=== PATIENT | female | born 1950 | race Caucasian/White ===

== ENCOUNTER 2017-06-13 11:37 | Emergency (ER) | payer MEDICARE, OTHER ==
[~2017-06-13] VITALS: Ht 160 cm; Wt 82.6 kg
[2017-06-13 12:19] VITALS: PULSE 102; RESP 16; TEMP 98.6; O2SAT 98
[2017-06-13] MEDS ORDERED: SODIUM CHLOR 0.9% 1000 ML INJ 1,000 ML IV SCH (12:33)
[2017-06-13] MEDS ORDERED: CHOL5000 PO (12:40)
[2017-06-13] MEDS ORDERED: LEXA20TA PO (12:40)
[2017-06-13] MEDS ORDERED: HYZA50TA2 PO (12:40)
[2017-06-13] MEDS ORDERED: ONDANSETRON HCL 4 MG/2 ML VIAL IVP ONE (12:45)
[2017-06-13] MEDS ORDERED: SODIUM CHLORIDE 0.9% FLUSH 10 ML FLUSH IV FLUSH PRN (12:45)
[2017-06-13 12:52] VITALS: O2SAT 97
[2017-06-13 12:57] LABS: AUTOMATED NEUTROPHIL # 5.6 TH/MM3 (1.8-7.7); BASOPHIL # 0.4 TH/MM3 (0-0.2); BASOPHIL % 4.6 % (0.0-2.0); BILIRUBIN, URINE NEG (NEG); EOSINOPHIL # 0.3 TH/MM3 (0-0.4); EOSINOPHIL % 3.3 % (0.0-4.0); GLUCOSE,URINE NEG (NEG); HEMATOCRIT 42.5 % (35.0-46.0); HEMOGLOBIN 13.9 GM/DL (11.6-15.3); KETONE, URINE NEG (NEG); LYMPH % 26.2 % (9.0-44.0); LYMPHOCYTE # 2.4 TH/MM3 (1.0-4.8); MEAN CELL VOLUME 92.2 FL (80.0-100.0); MEAN CORPUSCULAR HEMOGLOBIN 30.1 PG (27.0-34.0); MEAN CORPUSCULAR HGB CONC 32.6 % (32.0-36.0); MEAN PLATELET VOLUME 8.6 FL (7.0-11.0); MONOCYTE # 0.6 TH/MM3 (0-0.9); NEUT % 58.9 % (16.0-70.0); NITRITE,URINE NEG (NEG); PH, URINE 5.5 (5.0-8.5); PLATELET COUNT 239 TH/MM3 (150-450); RED BLOOD COUNT 4.61 MIL/MM3 (4.00-5.30); RED CELL DISTRIBUTION WIDTH 12.6 % (11.6-17.2); URINE LEUKOCYTE ESTERASE SMALL (NEG); WHITE BLOOD COUNT 9.3 TH/MM3 (4.0-11.0)
[2017-06-13 12:58] LABS: BLOOD, URINE TRACE (NEG)
[2017-06-13 13:00] LABS: URINE COLOR YELLOW (YELLW/STRAW)
[2017-06-13 13:03] LABS: CHLORIDE 105 MEQ/L (98-107); SODIUM (NA) 140 MEQ/L (136-145)
[2017-06-13 13:05] LABS: AMORPHOUS SEDIMENT, URINE FEW; BACTERIA, URINE MOD /hpf; RBC, URINE 0-3 /hpf (0-3); WHITE BLOOD CELL CLUMPS FEW
[2017-06-13 13:07] LABS: ALBUMIN 3.5 GM/DL (3.4-5.0); BICARBONATE 26.7 MEQ/L (21.0-32.0); BLOOD UREA NITROGEN 9 MG/DL (7-18); CALCIUM 8.9 MG/DL (8.5-10.1); GLUCOSE,RANDOM 130 MG/DL (74-106); LIPASE 119 U/L (73-393)
[2017-06-13 13:10] LABS: ALT (GPT) 31 U/L (10-53); AST (GOT) 27 U/L (15-37); CREATININE 0.76 MG/DL (0.50-1.00); GLOMERULAR FILTRATION RATE 76 ML/MIN (>89)
--- NOTE | 2017-06-13 13:10 | PD ---
HPI Chief Complaint: GI Complaint Time Seen by Provider: 12:26 Travel History International Travel<30 days: No Contact w/Intl Traveler<30days: No Traveled to known affect area: No History of Present Illness HPI This is a 66-year-old female who presents to the emergency department with nausea that going on for 4 days, constant, moderate severity, worsening, associated with decreased appetite. She does say she's had some abnormal urination, hasn't been urinating as much and feels some pressure when she urinates. She has had kidney infections in the past. She denies any abdominal pain, fevers or chills. She had one episode of vomiting 2 days ago. She denies any chest pain. PFSH Past Medical History Arthritis: Yes (OSTEO) Cardiovascular Problems: Yes (htn on meds) High Cholesterol: Yes Diabetes: Yes (BORDERLINE) Patient Takes Glucophage: No Diminished Hearing: No Hypertension: Yes Musculoskeletal: Yes (DDD) Tetanus Vaccination: > 5 Years Influenza Vaccination: Yes ?: Not Tubal Ligation: Yes Past Surgical History Appendectomy: Yes Hysterectomy: Yes Social History Alcohol Use: No Tobacco Use: No Substance Use: No Allergies-Medications (Allergen,Severity, Reaction): Coded Allergies: No Known Allergies (Unverified , 06/13/17) Reported Meds & Prescriptions Reported Meds & Active Scripts Active Reported Vitamin D3 (Cholecalciferol) 5,000 Unit Cap 5,000 Units PO DAILY Lexapro (Escitalopram Oxalate) 20 Mg Tab 20 Mg PO DAILY Hyzaar (Losartan-Hydrochlorothiazide) 50-12.5 Mg Tab Unknown Dose PO DAILY Review of Systems Except as stated in HPI: all other systems reviewed are Neg Physical Exam Narrative GENERAL:Well appearing, no acute distress SKIN: Focused skin assessment warm and dry. HEAD: Atraumatic. Normocephalic. EYES: Pupils equal and round. No injection or drainage. ENT: Moist mucous membranes NECK: Trachea midline. CARDIOVASCULAR: Regular rate and rhythm. No murmur appreciated. RESPIRATORY: Clear to auscultation. Breath sounds equal bilaterally. GASTROINTESTINAL: Abdomen soft, tender to palpation in the suprapubic region with no rebound or guarding. MUSCULOSKELETAL: No obvious deformities. NEUROLOGICAL: Awake and alert. No obvious cranial nerve deficits. Moving all extremities. PSYCHIATRIC: Appropriate mood and affect; insight and judgment normal. Data Data Last Documented VS Vital Signs Date Time Temp Pulse Resp B/P (MAP) Pulse Ox O2 Delivery O2 Flow Rate FiO2 06/13/17 12:52 97 Room Air 06/13/17 12:19 98.6 102 16 Orders Orders Complete Blood Count With Diff (06/13/17 12:33) Comprehensive Metabolic Panel (06/13/17 12:33) Lipase (06/13/17 12:33) Urinalysis - C+S If Indicated (06/13/17 12:33) Iv Access Insert/Monitor (06/13/17 12:33) Ecg Monitoring (06/13/17 12:33) Oximetry (06/13/17 12:33) Ondansetron Inj (Zofran Inj) (06/13/17 12:45) Sodium Chlor 0.9% 1000 Ml Inj (Ns 1000 M (06/13/17 12:33) Sodium Chloride 0.9% Flush (Ns Flush) (06/13/17 12:45) Troponin I (06/13/17 12:33) Urine Culture (06/13/17 12:50) Ceftriaxone Inj (Rocephin Inj) (06/13/17 13:15) Labs Laboratory Tests Test 06/13/17 12:50 White Blood Count 9.3 TH/MM3 Red Blood Count 4.61 MIL/MM3 Hemoglobin 13.9 GM/DL Hematocrit 42.5 % Mean Corpuscular Volume 92.2 FL Mean Corpuscular Hemoglobin 30.1 PG Mean Corpuscular Hemoglobin Concent 32.6 % Red Cell Distribution Width 12.6 % Platelet Count 239 TH/MM3 Mean Platelet Volume 8.6 FL Neutrophils (%) (Auto) 58.9 % Lymphocytes (%) (Auto) 26.2 % Monocytes (%) (Auto) 7.0 % Eosinophils (%) (Auto) 3.3 % Basophils (%) (Auto) 4.6 % Neutrophils # (Auto) 5.6 TH/MM3 Lymphocytes # (Auto) 2.4 TH/MM3 Monocytes # (Auto) 0.6 TH/MM3 Eosinophils # (Auto) 0.3 TH/MM3 Basophils # (Auto) 0.4 TH/MM3 CBC Comment DIFF FINAL Differential Comment Urine Collection Type CLEAN CATCH Urine Color YELLOW Urine Turbidity SLIGHT Urine pH 5.5 Urine Specific [place] 1.017 Urine Protein NEG mg/dL Urine Glucose (UA) NEG mg/dL Urine Ketones NEG mg/dL Urine Occult Blood TRACE Urine Nitrite NEG Urine Bilirubin NEG Urine Leukocyte Esterase SMALL Urine RBC 0-3 /hpf Urine WBC 20-24 /hpf Urine WBC Clumps FEW Urine Squamous Epithelial Cells 6-8 /hpf Urine Amorphous Sediment FEW Urine Bacteria MOD /hpf Microscopic Urinalysis Comment CULTURE INDICATED Urine Collection Time 1250 Blood Urea Nitrogen 9 MG/DL Creatinine 0.76 MG/DL Random Glucose 130 MG/DL Total Protein 7.4 GM/DL Albumin 3.5 GM/DL Calcium Level 8.9 MG/DL Alkaline Phosphatase 98 U/L Aspartate Amino Transf (AST/SGOT) 27 U/L Alanine Aminotransferase (ALT/SGPT) 31 U/L Total Bilirubin 0.4 MG/DL Sodium Level 140 MEQ/L Potassium Level 3.7 MEQ/L Chloride Level 105 MEQ/L Carbon Dioxide Level 26.7 MEQ/L Anion Gap 8 MEQ/L Estimat Glomerular Filtration Rate 76 ML/MIN Troponin I LESS THAN 0.02 NG/ML Lipase 119 U/L MDM Medical Decision Making Medical Screen Exam Complete: Yes Emergency Medical Condition: Yes Interpretation(s) afebrile, mildly tachycardic No leukocytosis Electrolytes are reassuring Troponin is normal Lipase is normal Urinalysis demonstrates urinary tract infection Differential Diagnosis Urinary tract infection, pyelonephritis, pancreatitis, cholecystitis, myocardial infarction, gastroenteritis Narrative Course This is a 66-year-old female who presents to the emergency department with nausea that's been going on for 4 days as well as some symptoms suggestive of a urinary tract infection. She says this has happened to her before. Patient was placed on a monitor and an IV was established. Labs are reassuring including a normal troponin. Urinalysis demonstrates a urinary tract infection. Given she has had some vomiting think it's reasonable to treat her for pyelonephritis. She was given 1 dose of IV Rocephin in the emergency department and will be discharged on Keflex. Otherwise she appears well and nontoxic and I think she is appropriate for outpatient management. Diagnosis Primary Impression: Pyelonephritis Patient Instructions: General Instructions Additional Instructions: If you develop fever, persistent vomiting, back pain, or inability to eat return to the emergency department as your urine infection may have progressed to a kidney infection. Complete your antibiotics as prescribed. Stay well hydrated with Gatorade or water. Followup with your primary care physician in 2-3 days if your symptoms have not resolved. Med/Other Pt SpecificInfo: Prescription(s) given Scripts Ondansetron Odt (Zofran Odt) 4 Mg Tab 4 MG SL Q6HR Y for Nausea/Vomiting, #15 TAB 0 Refills Prov: Emily Arzate MD 06/13/17 Cephalexin (Keflex) 500 Mg Cap 500 MG PO Q12H for Infection for 7 Days, #14 CAP 0 Refills Prov: Emily Arzate MD 06/13/17 Disposition: 01 DISCHARGE HOME Condition: Stable Emily Arzate MD Jun 13, 2017 13:10
[2017-06-13 13:12] LABS: TOTAL BILIRUBIN ADULT 0.4 MG/DL (0.2-1.0); TOTAL PROTEIN 7.4 GM/DL (6.4-8.2)
[2017-06-13 13:13] LABS: ALKALINE PHOSPHATASE 98 U/L (45-117)
[2017-06-13 13:15] LABS: TROPONIN I LESS THAN 0.02 NG/ML (0.02-0.05)
[2017-06-13] MEDS ORDERED: cefTRIAXone INJ 1,000 MG in SODIUM CHLORIDE 0.9% INJ 100 ML IV ONE (13:15)
[2017-06-13] MEDS ORDERED: ZOFR4TAB3 SL (13:28)
[2017-06-13] MEDS ORDERED: CEPH-460 PO (13:28)
[2017-06-13 14:50] VITALS: BP 156/88
== END 2017-06-13 14:58 | disposition home or self-care (01) ==
LOC: PHED 11:37
DX: N12 Tubulo-interstitial nephritis, not specified as acute or chronic (principal); B96.20 Unspecified Escherichia coli [E. coli] as the cause of diseases classified elsewhere; I10 Essential (primary) hypertension; E78.00 Pure hypercholesterolemia, unspecified; E11.9 Type 2 diabetes mellitus without complications; R00.0 Tachycardia, unspecified
CPT/HCPCS: 80053; 81001; 83690; 84484; 85025; 87077; 87086; 87186; 96361; 96365; 96375; 99284; J0696; J2405; J7030